=== PATIENT | female | born 1985 | race Asian ===

== ENCOUNTER → 2021-11-02 10:09 | Outpatient (BNVA) | payer SELFPAY | PROVIDERS: Visit Provider Internal Medicine | DX: Z02.79 Encounter for issue of other medical certificate (principal) ==

== ENCOUNTER → 2023-01-10 10:06 | Outpatient (BNVA) | payer SELFPAY | PROVIDERS: Visit Provider Physician Assistant Medical | DX: Z02.79 Encounter for issue of other medical certificate (principal) ==

== ENCOUNTER → 2024-12-24 09:38 | Outpatient (BNVA) | payer SELFPAY | PROVIDERS: Visit Provider Physician Assistant Medical | DX: Z02.79 Encounter for issue of other medical certificate (principal) ==

== ENCOUNTER 2025-01-11 09:33 | Outpatient (AMB) | payer OTHER, SELFPAY ==
--- NOTE | 2025-01-11 09:39 | AM.OFFWIN_ITS ---
Intake Vital Signs 01/11/25 09:44 Height 4 ft 11 in Weight 161 lb BMI 32.5 BP 110/66 Blood Pressure Location Lt brachial Position Sitting Respiration 12 Pulse 66 Pulse Source Pulse Oximeter Temp 98.1 F Temp Source Oral Pulse Oximetry (%) 100 Oxygen Delivery Method Room Air Intake Visit Reasons: sore throat/ear pain Intake Note: Patient complaining of sore throat, and earaches x 7 days. Patient also had the flu 3 weeks ago. Patient Tobacco Use Status: Former Tobacco user [employer] Required: No Allergies No Known Allergies Allergy (Verified 01/11/25 09:39) Do you need a note to return to daycare/school/sports/work: No HPI HPI Comments History of Present Illness Details 39-year old female presents with complai nts of left ear pain and sore throat for the past 2 days. She notes associated frontal head pressure. She had the flu 3 weeks ago and has been experiencing flu-like symptoms for the past 2 weeks. She continues to experience nonproductive cough for the past 1 and half week. She initially experienced constitutional symptoms but not at this time. 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 She has not been tested for COVID, flu, RSV. REPLACED BY [facility] Social History Patient Tobacco Use Status: Former Tobacco user Review of Systems Const Details: Denies chills, Denies fatigue, Denies fever(s), Denies headache(s) and Denies weakness Cardiac Denies chest pain, Denies claudication, Denies leg edema, Denies lightheadedness, Denies palpitations, Denies dyspnea, Denies dyspnea on exertion, Denies orthopnea and Denies other (Loss of consciousness) Resp Reports cough, Denies excessive phlegm production, Denies dyspnea, Denies dyspnea on exertion, Denies snoring and Denies wheezing Physical Exam Vital Signs: Last Vital Signs Temp 98.1 F 01/11/25 09:44 Pulse 66 01/11/25 09:44 Resp 12 01/11/25 09:44 BP 110/66 01/11/25 09:44 Pulse Ox 100 01/11/25 09:44 Oxygen Delivery Method Room Air 01/11/25 09:44 BMI result Body Mass Index 32.5 Const Other: General: comfortable and no acute distress Orientation/consciousness: patient oriented x3 Chest Chest palpation & inspection: normal inspection of the chest Resp Auscultation: clear to auscultation bilaterally Cardiac Palpation: normal PMI Heart sounds: S1 normal heart sound present, S2 normal heart sound present, no gallops, no murmur, no rubs Head is normocephalic Impacted cerumen both ears occluding the TMs Nasal turbinates and oropharynx are pink and moist Frontal and maxillary sinus tenderness to palpation No auricular or cervical lymphadenopathy Results AMB Rapid Strep AMB Rapid Strep Negative Last Edit by Cierra Unger MA on 01/11/25 09:52 Results Reviewed Results Reviewed: Laboratory Last Values Strep Scn Rapid Clinic Negative 01/11/25 09:41 Assessment & Plan Assessment & Plan (1) Viral upper respiratory illness: Code(s): J06.9 - Acute upper respiratory infection, unspecified Plan: Likely viral illness though possibly allergies. Sinus infection is possible secondary to superimposed bacterial infection. Viral illness There is no antibiotic medication for viruses.? They must run their course.? Most average 5-7 days but 7-10 days is not uncommon and up to 14 days is still possible.? A cough is often the last symptom to resolve and this can last for weeks in some cases. Rest Hydrate well -? Drink plenty of fluids.? Especially water Tylenol or ibuprofen for muscle aches, headache, fever/discomfort May take antihistamine such as Claritin or cetirizine daily Cannot rule out COVID-19/RSV/Flu infection Nasal swab acquired and will be sent to the lab Return for new or worsening symptoms Verbalized understanding and agreed with treatment plan. (2) Sinus infection: Code(s): J32.9 - Chronic sinusitis, unspecified Plan: Frontal and maxillary sinus tenderness to palpation. Z-Irving as prescribed. (3) Impacted cerumen of both ears: Code(s): H61.23 - Impacted cerumen, bilateral Plan: Impacted cerumen to both ears occluding the TMs. Debrox ordered; advised to use as prescribed 4 days before follow-up visit for bilateral ear lavage. Follow-up in the walk-in clinic for bilateral ear lavage. Verbalized understanding and agreed with treatment plan. 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
[2025-01-11 09:44] VITALS: BP 110/66; PULSE 66; RESP 12; TEMP 36.7; O2SAT 100; BMI 32.5
--- OUTSIDE RECORDS SUMMARY | 2025-01-11 10:21 | XMS_ITS | Clinical Summary ---
Author Organization [facility] Address [address] [place] [address] Care Team Providers Care Allergist/Immunologist Physician Name Role Phone Mark Bo MD Primary Care Provider Allergies Active Allergy Reactions Criticality Noted Date Comments Other 12/30/2009 Seasonal Allergies Medications albuterol sulfate (ProAir RespiClick) 90 mcg/actuation aerosol powdr breath activated Inhale 1 puff by mouth 4 (four) times a day if needed. shortness of breath/wheezin g 2 Active Active Problems Problem Noted Date Diagnosed Date Anxiety disorder 06/23/2018 Psoriatic arthritis 06/23/2018 Psoriasis 02/27/2018 Overview (10/23/2024): Last Assessment & Plan: Clinical diagnosis reviewed. Recommended biopsy due to severity of disease noted and to confirm diagnosis. She was agreeable. See below. Aso given Rx for fluocinonide to use BID x 2 weeks, then daily in areas not affected by biopsy. Soak and seal. If biopsy positive for psoriasis, will send to see Derm for other options for treatment on the rest of her body. Reason for biopsy: Encounter Diagnoses Name Primary? ? Psoriasis Yes ? Vulvar itching ? Vulvar burning The patient was consented for vulvar biopsy. Risks reviewed including bleeding, infection, and hematoma formation. She was placed in dorsal lithotomy position. The area of planned biopsy was prepped with betadine and infiltrated with a total of 1 cc of 1% lidocaine. A 3 mm punch biopsy was taken and harvested with forceps and Iris scissors. Hemostasis was obtained with pressure and silver nitrate. Zinc oxide was applied. The patient tolerated the procedure well. Verbal and written instructions were provided. HORACIO MIR MD Vulvar itching 02/27/2018 Overview (10/23/2024): Onset ~ 2017 Last Assessment & Plan: Will follow C guidelines, soak and seal twice daily for itching. Can also apply calmoseptine prn itching. CTS (carpal tunnel syndrome) 05/19/2014 Overview (10/23/2024): 2014: Seeing Dr. Hansel Sparks L numbness but nl EMG - some benefit with CS injections and splinting Immunizations Name Administration Dates Next Due DTaP (Infanrix) 6wks to less than 7yo 07/11/2014 Pfizer SARS-CoV-2 COVID-19, mRNA, LNP-S, preservative free 06/28/2021 Tdap Tetanus diptheria acell ular pertussis (Boostrix; Adacel) 7yo and older 12/05/2009 Surgical History Surgery Date Site/Laterality Comments SECTION 2009 PROCEDURE: HI DELIVERY ONLY; COMMENT: x1 TUBAL LIGATION 2009 PROCEDURE: HISTORICAL TUBAL LIGATION Medical History Medical History Date Comments Psoriasis 02/27/2018 DX:Psoriasis CTS (carpal tunnel syndrome) 05/19/2014 DX: CTS (carpal tunnel syndrome); COMMENT: 2013: Seeing Dr. Hansel Lopez numbness but nl EMG - some benefit with CS injections and splinting Anxiety disorder 06/23/2018 DX:Anxiety diso rder Psoriatic arthritis (CMS/HCC) 06/23/2018 DX :Psoriatic arthritis (HCC) Family History Medical History Relation Name Comments Breast cancer Mother Colon cancer Neg Hx Ovarian cancer Neg Hx Uterine cancer Neg Hx Relation Name Status Comments Brother Alive healthy Daughter Alive 2000 healthy Father Alive MS, HTN Mother Alive HTN Paternal Grandfather Alive lung ca ncer Paternal Grandmother Alive healthy Sister 1 Alive age 13 colon ca ncer Sister 2 Alive healthy Sister 3 Alive healthy Sister 4 Alive healthy Sister 5 Alive healthy Son Alive 2005 failure to thrive Social History Tobacco Use Types Packs/Day Years Used Date Smoking Tobacco: Former Cigarettes Q uit: 09/04/2009 Smokeless Tobacco: Never Alcohol Use Standard Drinks/Week Comments Yes 0.8 (1 standard drink = 0.6 oz p ure alcohol) Comments Unknown Sex and Gender Information Value Date Recorded Sex Assigned at Not on file Legal Sex Female 3:40 PM EST Gender Identity Not on file Sexual Orientation Not on file Obstetrics History Last Filed Vital Signs Vital Sign Reading Time Taken Comments Blood Pressure 110/82 10/08/2022 1:06 PM EST Pulse 85 10/08/2022 1:06 PM EST Temperature - - Respiratory Rate - - Oxygen Saturation - - Inhaled Oxygen Concentration - - Weight 74.4 kg (164 lb) 10/08/2022 1:06 PM EST Height 149.9 cm (4' 11 ) 10/08/2022 1:06 PM EST Body Mass Index 33.12 10/08/2022 1:06 PM EST Plan of Treatment Upcoming Encounters Date Type Department Care Team (Late st Contact Info) Description 07/23/2025 11:00 AM EDT Office Visit Adult Medicine [facility] [place], [place] [address] [place] [address] Mark Bo MD [address] [place] [address] Health Maintenance Due Date Last Done Comments Breast Cancer Screening 1984 Hepatitis B Vaccines (1 of 3 - 19+ 3-dose series) 01/18/2003 Cervical Cancer Screening: P ap Smear 03/19/2017 03/19/2014, 03/19/2014 COVID-19 Vaccine (3 - Pfizer risk series) 07/26/2021 06/28/2021, 03/30/2021 Depression Screening 10/08/2022 HIV Screening 10/08/2022 Social Influencers of Health Screening 10/08/2022 Influenza Vaccine (#1) 2024 DTaP,Tdap,and Td Vaccines (3 - Td or Tdap) 07/11/2024 07/11/2014, 12/05/2009 Hepatitis C Screening Completed 09/25/2016 HIB Vaccines Aged Out No longer eligi ble based on patient's age to complete this topic HPV Vaccines Aged Out No longer eligi ble based on patient's age to complete this topic Hepatitis A Vaccines Aged Out No long er eligible based on patient's age to complete this topic IPV Vaccines Aged Out No longer eligi ble based on patient's age to complete this topic MMR Vaccines Aged Out No longer eligi ble based on patient's age to complete this topic Meningococcal ACWY Vaccine Aged Out N o longer eligible based on patient's age to complete this topic Meningococcal B Vacine Aged Out No lo nger eligible based on patient's age to complete this topic Pneumococcal Vaccine: Pediatrics (0 to 5 Years) and At-Risk Patients (6 to 64 Years) Aged Out No longer eligible b ased on patient's age to complete this topic RSV Immunization Patients Under 20 months Aged Out No longer eligible b ased on patient's age to complete this topic Varicella Vaccines Aged Out No longer eligible based on patient's age to complete this topic Procedures Procedure Name Priority Date/Time Associated Diagnosis Comments HEPATITIS C SCREENING Routine 09/25/2016 HPV Routine 03/19/2014 from Last 3 Months or Most Recently Relevant to Health Maintenance Results * Hepatitis C Screening (09/25/2016) Hepatitis C Screening abstracted Historical Provider HEALTH MAINTENANCE Final Result * Cervical Cancer Screening: HPV (03/19/2014) Cervical Cancer Screening: HPV negative, abstracted Historical Provider HEALTH MAINTENANCE Final Result from Last 3 Months or Most Recently Relevant to Health Maintenance Care Teams Allergist/Immunologist Physician Relationship Specialty Start Date End Date Mark Bo MD [address] [place] [address] PCP - General 08/11/24
== END 2025-01-11 10:14 | disposition home or self-care (01) ==
LOC: HO.HMCWIW 09:33
PROVIDERS: Visit Provider Nurse Practitioner Family
DX: J06.9 Acute upper respiratory infection, unspecified (principal); J32.9 Chronic sinusitis, unspecified; H61.23 Impacted cerumen, bilateral; Z13.9 Encounter for screening, unspecified

== ENCOUNTER 2025-01-11 09:33 | Outpatient (REF) | payer OTHER, SELFPAY ==
[2025-01-11 15:23] LABS: Influenza A PCR NEGATIVE (Negative); Influenza B PCR NEGATIVE (Negative); Resp Syncy Virus RNA Qual PCR NEGATIVE (Negative); SARS COV2 PCR INHOUSE NEGATIVE (Negative)
--- OUTSIDE RECORDS SUMMARY | 2025-01-11 16:09 | XMS_ITS | Data Portability ---
Author Organization [facility] Lopez s, [address] Address [address] [place] [address] Assessment No assessment recorded. Plan of Treatment Reminders Order Date Submit Date Provider Last Modified By Organization Details Last Modified Time Details Appointments None recorded. Lab culture, urine 2023 024 RUPERT [facility], [address] [place] [address], [place], [address], 20:06:23 urinalysis, dipstick 2023 024 [facility] [id number] [place], [place] [address], [address] [place], [address], 13:45:47 test, urine 2023 024 [facility] [address] [place], [place] [address], [address] [place], [address], 13:45:51 Referral None recorded. Procedures None recorded. Surgeries None recorded. Imaging None recorded. Medication Orders cephalexin 500 mg tablet 2023 024 RUPERT [id number], [address] [facility], [place], [address], 13:40:39 Patient TargetsNo targets recorded. Patient Instructions Encounter Date Encounter Id Patient Instructions Last Modified By Organization Details Last Modified Time 07/05/2024 [id number] Urinary Tract Infection (UTI) in Women: Care Instructions melisaRon Not available 07/05/2024 13:40:37 Reason for Referral None Reported. Results Created Date Observation Date Name Description Value Unit Range Abnormal Flag Note LastModifiedBy Organization Detail LastModifiedTime 07/05/20 24 07/09/2024 URINE CULTU REISAC NE urine culture, routine FINAL REPORT Not Available [facility]) [address] [facility], [place], [address], 07/09/2024 20:06:23 07/05/20 24 07/09/2024 URINE CULTU RE, TRESSAI NE result 1 COMMEN T Mixed uroge nital bigg Great er than 100,0 00 colon y formi ng units per mL Not Available [facility] ([facility]) [address] [facility], [place], [address], 07/09/2024 20:06:23 07/05/20 24 07/05/2024 pregn james test, urine Unknown Analyte negati ve Not Available [facility] [address] [place] [address], [address], 07/05/2024 13:40:47 07/05/20 24 07/05/2024 pregn james test, urine Unknown Analyte yes Not Available [address], [address], 07/05/2024 13:40:47 07/05/20 24 07/05/2024 urina lysis , dipst ick Unknown Analyte Normal = light yellow Not Available [facility] [address] [place] [address], [address], 07/05/2024 13:40:46 07/05/20 24 07/05/2024 urina lysis , dipst ick Unknown Analyte Red Not Available [facility], [address], 07/05/2024 13:40:46 07/05/20 24 07/05/2024 urina lysis , dipst ick Unknown Analyte Normal = clear Not Available [facility] [address] [place] [address], [address], 07/05/2024 13:40:46 07/05/20 24 07/05/2024 urina lysis , dipst ick Unknown Analyte Cloudy Not Available [facility] [address] [place] [address], [address], 07/05/2024 13:40:46 07/05/20 24 07/05/2024 urina lysis , dipst ick Unknown Analyte Normal = negati ve Not Available [facility] [address] [place] [address], [address], 07/05/2024 13:40:46 07/05/20 24 07/05/2024 urina lysis , dipst ick Unknown Analyte 250 mg/dL Not Available [facility] [address] [place] [address], [address], 07/05/2024 13:40:46 07/05/20 24 07/05/2024 urina lysis , dipst ick Unknown Analyte Normal = Negati ve Not Available [facility] [address] [place] [address], [address], 07/05/2024 13:40:46 07/05/20 24 07/05/2024 urina lysis , dipst ick Unknown Analyte Small Not Available [facility] [address] [place] [address], [address], 07/05/2024 13:40:46 07/05/20 24 07/05/2024 urina lysis , dipst ick Unknown Analyte Normal = Negati ve Not Available [facility] [address] [place] [address], [address], 07/05/2024 13:40:46 07/05/20 24 07/05/2024 urina lysis , dipst ick Unknown Analyte 15 mg/dL Not Available [facility] [address] [place] [address], [address], 07/05/2024 13:40:46 07/05/20 24 07/05/2024 urina lysis , dipst ick Unknown Analyte Normal = 1.010, 1.015, 1.020 Not Available [facility] [address] [place] [address], [phone], 07/05/2024 13:40:46 07/05/20 24 07/05/2024 urina lysis , dipst ick Unknown Analyte 1.015 Not Available [facility] [address] [place] [address], [address], 07/05/2024 13:40:46 07/05/20 24 07/05/2024 urina lysis , dipst ick Unknown Analyte Normal = Negati ve Not Available [facility] [address] [place] [address], [address], 07/05/2024 13:40:46 07/05/20 24 07/05/2024 urina lysis , dipst ick Unknown Analyte Negati ve Not Available [facility] [address] [place] [address], [address], 07/05/2024 13:40:46 07/05/20 24 07/05/2024 urina lysis , dipst ick Unknown Analyte Normal = 6.5, 7.0, 7.5, 8.0 Not Available [facility] [address] [place] [address], [address], 07/05/2024 13:40:46 07/05/20 24 07/05/2024 urina lysis , dipst ick Unknown Analyte 8.5 Not Available [facility] [address] [place] [address], [address], 07/05/2024 13:40:46 07/05/20 24 07/05/2024 urina lysis , dipst ick Unknown Analyte Normal = Negati ve Not Available [facility] [address] [place] [address], [address], 07/05/2024 13:40:46 07/05/20 24 07/05/2024 urina lysis , dipst ick Unknown Analyte 100 mg/dL Not Available [facility] [address] [place] [address], [address], 07/05/2024 13:40:46 07/05/20 24 07/05/2024 urina lysis , dipst ick Unknown Analyte Normal = 0.2, 1.0 Not Available [facility] ie [address], [address], 07/05/2024 13:40:46 07/05/20 24 07/05/2024 urina lysis , dipst ick Unknown Analyte 4.0 E.U./d L Not Available [facility] [address] [place] [address], [address], 07/05/2024 13:40:46 07/05/20 24 07/05/2024 urina lysis , dipst ick Unknown Analyte Normal = Negati ve Not Available [facility] [address] [place] [address], [address], 07/05/2024 13:40:46 07/05/20 24 07/05/2024 urina lysis , dipst ick Unknown Analyte Positi ve Not Available [facility] ie [address], [address], 07/05/2024 13:40:46 07/05/20 24 07/05/2024 urina lysis , dipst ick Unknown Analyte Normal = Negati ve Not Available [facility] ie [address], [address], 07/05/2024 13:40:46 07/05/20 24 07/05/2024 urina lysis , dipst ick Unknown Analyte Large Not Available [address] [place], [address], 07/05/2024 13:40:46 Result Notes None recorded. Problems Name Problem SNOMED Code Status Onset Date Resolution Date Notes Provider Name and Address Organization Details Recorded Time Urinary tract infectious disease 83727170 Active 024 Gilberto Willams NP [address], [place], [address] , [place] - [facility] 13:39:55 Problem Notes None recorded. Procedures Surgical History Date Name Laterality Status Provider Name and Address Organization Details Recorded Time delivery completed Tesha Mirna [place] - [facility] 07/05/2024 12:59:58 Imaging Results None recorded. Procedure Notes None recorded. Medical Equipment None Reported. Allergies No known drug allergies Medications Name Sig Start Date Stop Date Status Note LastModified by Organization Details LastModified Time triamcinolone acetonide 0.1 % topical cream APPLY TWICE DAILY TO ARMS, LEGS, AND TRUNK FOR 2 WEEKS, THEN BREAK FOR 1 WEEK, REPEAT NEEDED active Not Available Not Available No t Available cephalexin 500 mg capsule TAKE 1 TABLET EVERY 8 HOURS BY ORAL ROUTE WITH MEALS FOR 7 DAYS, FOR UTI. active Not Available Not Available No t Available cephalexin 500 mg tablet Take 1 tablet every 8 hours by oral route with meals for 7 days, for uti. 2023 active Not Available Not Available Not Avai lable mometasone 0.1 % topical solution APPLY TO THE SCALP TWICE DAILY FOR TWO WEEKS BREAK ONE WEEK THEN REPEAT NEEDED 07/05 completed Not Available Not Available Not Available Otezla 30 mg tablet 07/05 completed Not Available Not Available Not Available Taltz Autoinjector 80 mg/mL subcutaneous active Not Available Not Available Not Available Vitals Date Recorded Body height Body mass index (BMI) Body weight Body temperature Respiratory rate Oxygen saturation Oxygen saturation in Arterial blood by Pulse oximetry Heart rate Systolic blood pressure Diastolic blood pressure Provider Name and Address Organization Details Last Updated DateTime 4 149.86 cm 32.3 kg/m2 40773.7 8 g 98.6 [degF] 18 /min 96 % 96 % 74 /min 124 mm[Hg] 86 mm[Hg] Tesha Mirna PA - [facility] 13:02:53 Social History Question Answer Notes LastModified by Organizat ion Details LastModified Time Tobacco Smoking Status Current Some Day Smoker Tesha Mirna null, [place] - [facility] 07/05/2024 12:59:23 What Is Your Level Of Alcohol Consumption? Occasional Information not available 07/05/2024 Are You Currently Employed? Yes Information not available 07/05/2024 What Is Your Relationship Status? Information not available 07/05/2024 How Much Tobacco Do You Smoke? No Information not available 07/05/2024 Do You Use Any Illicit Or Recreational Drugs? No Information not available 07/05/2024 Have You Recently Traveled Abroad? No Information not available 07/05/2024 Sex: Unknown Functional Status None recorded. Mental Status None recorded. Family History Nothing Reported. Medical History No medical history recorded. Gynecological History Statement/Question Response Date of LMP 06/29/2024 Is there any chance of ? No LMP Approximate Obstetrics History GPAL:G 0 P 0 0 0 0 Immunizations Vaccine Type Date Status Note Provider Nam e and Address Organization Details Recorded Time COVID-19, mRNA, LNP-S, PF, 30 mcg/0.3 mL dose 03/30/2021 completed Tesha Mirna null, [place] - [facility] 07/05/2024 12:58:07 COVID-19, mRNA, LNP-S, PF, 30 mcg/0.3 mL dose 06/28/2021 completed Tesha Mirna null, [place] - [facility] 07/05/2024 12:58:07 COVID-19, mRNA, LNP-S, bivalent, PF, 50 mcg/0.5 mL or 25mcg/0.25 mL dose 07/12/2022 completed Tesha Mirna null, [place] - [facility] 07/05/2024 12:58:07 Tdap 12/05/2009 completed Teshathierno kurtz, [place] - [facility] 07/05/2024 12:58:07 DTaP 07/11/2014 completed Teshathierno kurtz, [place] - [facility] 07/05/2024 12:58:07 Past Encounters Encounter ID Performer Location Encounter Start Date Encounter Closed Date Diagnosis/Indication Diagnosis SNOMED-CT Code Diagnosis ICD10 Code Diagnosis Note [id number] [address] [place] [address] 06/16/2020 08:35:49 06/16/2020 09:03:43 [id number] Gilberto Willams [place] [address] [place] [address] 07/05/2024 12:45:04 07/05/2024 13:50:52 Urinary tract infectious disease 69936894 N39.0 We recommend you get a repeat urinalysis in 2 weeks to ensure that any abnormalit ies have resolved. If urine abnormalit ies persist, you will likely need further testing or treatment. We will contact you within 3 to 5 days with the results of your lab test. If you have not heard back from us within that time frame, please feel free to contact our office regarding your results. Go to the Emergency Department immediatel y if your symptoms worsen or if you develop new symptoms that concern you. Drink plenty of fluids You should follow-up with your PCP in 4-5 days, or at any time if your condition does not improve or worsens. Any acute change should prompt a visit to the nearest Emergency Department . Health Concerns Section Related Observation LastModified by Organization Detai ls LastModified Time None Recorded Concern Status LastModified by Organization Details LastModified Time None Recorded Advance Directives Directive None Recorded Payers Encounter Date Sequence Insurance Name Policy Number Policy Lay Covered Member ID Lay Member ID Guarantor Name 06/16/2020 1 [facility] (MEDICAID REPLACEMENT - HMO) LENA Fuentes [id number] Nancy Fuentes 07/05/2024 1 [facility] (MEDICAID REPLACEMENT - HMO) LENA Fuentes [id number] Nancy Fuentes Notes Date Note Type Note Provider Name and Address Organization Details Recorded Time text/html Urinary Complaint FemaleReported bypatient.source of patient informationInformation obtained from patient; Patient arrived at Urgent Care ambulatory UTI Symptoms:no blood in the urine; no vaginal discharge; no pain in the flank; no fever/chills; no incontinence; no recurrent UTI; no known exposure to STD;pain during urination;urgency;urinary frequency Severity:moderate Duration:3 days Modifying Factors:nothing gives reliefNotes:frequency and urgency x 3 day. denies any fever or fever with chills, denies any History of renal stone or bladder issues. Gilberto Willams NP [address] [place], [address], [place] - [facility] 07/06/2024 07:57:57 OBGyn Episode No OBEpisode recorded.
--- OUTSIDE RECORDS SUMMARY | 2025-01-11 16:09 | XMS_ITS | Clinical Summary ---
Author Organization [facility] Address [address] [place] [address] Care Team Providers Care Human Resources Partner Name Role Phone Mark Bo MD Primary [...] Surgery Date Site/Laterality Comments SECTION 2009 PROCEDURE: [place] DELIVERY ONLY; COMMENT: x1 TUBAL LIGATION 2009 [...] 11:00 AM EDT Office Visit Adult Medicine [facility] [address] [place] [address] Mark Bo MD [address] [place] [address] Health Maintenance Due Date Last Done Comments [...] Recently Relevant to Health Maintenance Care Teams Human Resources Partner Relationship Specialty Start Date End Date Mark Bo MD [address] [place] [address] PCP - General 08/11/24
== END 2025-01-11 09:34 | disposition home or self-care (01) ==
LOC: HO.LNP 09:33
PROVIDERS: Nurse Practitioner Family; Visit Provider Nurse Practitioner Family
DX: J06.9 Acute upper respiratory infection, unspecified (principal); J02.9 Acute pharyngitis, unspecified; H61.23 Impacted cerumen, bilateral
CPT/HCPCS: 0241U; 87880; 99202